=== PATIENT | female | born 1980 | race Caucasian/White ===

== ENCOUNTER 2017-10-07 10:32 | Outpatient (CLI) | payer OTHER ==
[~2017-10-07 10:32] MED LIST: TANDEM PLUS CA1 EACH PO
[2017-10-08] MEDS ORDERED: DOXYCYCLINE HY100 MG PO (10:18)
[2017-10-08] MEDS ORDERED: CODE1TAB37 PO (10:18)
== END 2017-10-07 10:40 | disposition home or self-care (01) ==
LOC: LAB 10:32
DX: N91.1 Secondary amenorrhea (principal)

== ENCOUNTER 2017-10-08 05:45 | Day surgery (SDC) | payer OTHER ==
[2017-10-08] MEDS ORDERED: CODE1TAB37 PO (10:18)
[2017-10-08] MEDS ORDERED: DOXYCYCLINE HY100 MG PO (10:18)
== END 2017-10-08 17:00 | disposition home or self-care (01) ==
LOC: CIR.AMB 05:45
DX: D25.0 Submucous leiomyoma of uterus (principal); N84.0 Polyp of corpus uteri